=== PATIENT | female | born 1965 | race Caucasian/White ===

== ENCOUNTER → 2016-07-20 | Outpatient (CLI) | payer OTHER ==
[~2016-07-20] MED LIST: ASPI1TAB PO; CALC600T7 PO; FLAX10005 PO; LEVO100T5 PO; MELA1CAP2 PO; MULTCAP PO; PREM.6256 PO
[2016-07-20 21:12] LABS: FREE T4 1.52 NG/DL (0.76-1.46)
== END ==
LOC: M LRY 16:33
PROVIDERS: ATTEND Internal Medicine Endocrinology, Diabetes & Metabolism
DX: E89.0 Postprocedural hypothyroidism (principal)

== ENCOUNTER → 2016-09-18 | Outpatient (CLI) | payer OTHER ==
[2016-09-18 21:27] LABS: FREE T4 1.3 NG/DL (0.76-1.46)
== END ==
LOC: M LRY 17:04
PROVIDERS: ATTEND Internal Medicine Endocrinology, Diabetes & Metabolism
DX: E89.0 Postprocedural hypothyroidism (principal)

== ENCOUNTER → 2017-03-27 | Outpatient (CLI) | payer OTHER ==
[2017-03-27 17:11] LABS: FREE T4 1.13 NG/DL (0.76-1.46)
== END ==
LOC: M LAB 15:35
PROVIDERS: ATTEND Physician Assistant Medical
DX: E89.0 Postprocedural hypothyroidism (principal)

== ENCOUNTER → 2017-04-02 | Outpatient (CLI) | payer OTHER ==
[2017-04-02 10:15] LABS: ALBUMIN 3.5 GM/DL (3.2-5.2); ALBUMIN/GLOBULIN RATIO 1.03 (1.00-1.93); ALKALINE PHOSPHATASE 69 U/L (45-117); ALT/SGPT 21 U/L (12-78); ANION GAP 6 MEQ/L (8-16); AST/SGOT 12 U/L (15-37); BILIRUBIN,TOTAL 0.2 MG/DL (0.2-1.0); BLOOD UREA NITROGEN 10 MG/DL (7-18); CALCIUM LEVEL 8.4 MG/DL (8.5-10.1); CARBON DIOXIDE LEVEL 27 MEQ/L (21-32); CHLORIDE LEVEL 108 MEQ/L (98-107); CHOLESTEROL LEVEL 222 MG/DL (<200); CREATININE FOR GFR 0.86 MG/DL (0.55-1.02); GLOMERULAR FILTRATION RATE > 60.0 (>51); GLUCOSE, FASTING 85 MG/DL (70-105); POTASSIUM SERUM 4.5 MEQ/L (3.5-5.1); SODIUM LEVEL 141 MEQ/L (136-145); TOTAL PROTEIN 6.9 GM/DL (6.4-8.2); TRIGLYCERIDES LEVEL 116 MG/DL (<150)
== END ==
LOC: M LAB 09:22
PROVIDERS: ATTEND Family Medicine
DX: E78.2 Mixed hyperlipidemia (principal)

== ENCOUNTER → 2017-04-02 | Outpatient (CLI) | payer OTHER ==
--- NOTE | 2017-04-03 10:26 | DEXA ---
AP SPINE L1 - L4 1.147 -0.4 0.3 LT FEMUR TOTAL 0.952 -0.4 0.1 RT FEMUR TOTAL 0.964 -0.3 0.2 TOTAL BODY TOTAL OTHER DUAL FEMUR FRAX* ASSESSMENT Risk factors: 10 year probability of fracture Major osteoporotic fracture % Hip fracture % COMMENTS: Normal bone densitometry of the spine. Normal bone densitometry of the left hip. There is low bone density of the right hip. The density of the spine has decreased 3.7% since 12/27/2004. The density of the left hip has decreased 0.3% since 12/27/2004. The density of the right hip has decreased 2.3% since 12/27/2004. The decreased density of the spine does represent a significant change. The decreased density of the left hip does not represent a significant change. The decreased density of the right hip does represent a significant change. FOLLOW-UP: Recommendation for the next bone density exam: 2 years. VIKA
== END ==
LOC: M WHC 08:11
PROVIDERS: ATTEND Family Medicine
DX: Z86.39 Personal history of other endocrine, nutritional and metabolic disease (principal); Z13.820 Encounter for screening for osteoporosis

== ENCOUNTER → 2017-07-23 | Outpatient (CLI) | payer OTHER ==
[2017-07-23 19:29] LABS: FREE T4 1.29 NG/DL (0.76-1.46)
== END ==
LOC: M LAB 17:29
DX: E89.0 Postprocedural hypothyroidism (principal)
CPT/HCPCS: 84443

== ENCOUNTER → 2017-09-05 | Outpatient (CLI) | payer OTHER | LOC: M WHC 13:37 | DX: Z12.31 Encounter for screening mammogram for malignant neoplasm of breast (principal) | CPT/HCPCS: 77067 ==

== ENCOUNTER → 2017-09-05 | Outpatient (REF) | payer OTHER | LOC: M SFHCWAGY 14:06 | DX: Z12.4 Encounter for screening for malignant neoplasm of cervix (principal) ==

== ENCOUNTER → 2017-11-21 | Outpatient (REF) | payer OTHER ==
[2017-11-21 12:56] LABS: RHEUMATOID FACTOR QUANT < 10.0 IU/ML (<15.0)
[2017-11-21 12:56] LABS: URIC ACID 3.1 MG/DL (2.6-6.0)
== END ==
LOC: M SFHCADAM 07:57
DX: M67.40 Ganglion, unspecified site (principal)

== ENCOUNTER → 2018-01-17 | Outpatient (CLI) | payer OTHER ==
[2018-01-17 19:00] LABS: THYROID STIMULATING HORMONE 0.362 uIU/ML (0.358-3.740)
[2018-01-17 19:00] LABS: FREE T4 1.19 NG/DL (0.76-1.46)
== END ==
LOC: M LRY 14:41
DX: E89.0 Postprocedural hypothyroidism (principal)

== ENCOUNTER → 2018-09-06 | Outpatient (CLI) | payer OTHER ==
--- NOTE | 2018-09-06 15:19 | REPMRS ---
Patient History The patient states she had a clinical breast exam in 08/2018. Patient is postmenopausal. Family history of colorectal cancer at age 50 in father, colorectal cancer in paternal grandfather. Took hormonal contraceptives for 8 years. Taking unspecified hormones for 5 years. 3D TOMOSYNTHESIS WAS PERFORMED. Digital Woman Screen Mammo: September 06, 2018 - Exam #: [id number] Bilateral CC and MLO view(s) were taken. Technologist: Roxie Swan, Technologist Prior study comparison: September 05, 2017, digital woman screen mammo performed at [email or web address]. May 19, 2016, digital woman screen mammo performed at [email or web address] to [facility]. FINDINGS: There are scattered fibroglandular densities. There has been no change in the appearance of the mammogram from the prior studies. There is a mild amount of residual fibroglandular tissue which is fairly symmetric. There is no interval development of dominant mass, architectural distortion, or clustered microcalcification suggestive of malignancy. Assessment: BI-RADS/ACR category 1 mammogram. Negative Mammogram. Recommendation Routine screening mammogram in 1 year (for women over age 40). This mammogram was interpreted with the aid of an FDA-approved computer-aided dectection system. Electronically Signed By: Marvel Cummings MD 09/06/18 0800
== END ==
LOC: M WHC 14:02
PROVIDERS: ATTEND Physician Assistant
DX: Z12.31 Encounter for screening mammogram for malignant neoplasm of breast (principal)

== ENCOUNTER → 2019-01-14 | Outpatient (CLI) | payer OTHER ==
[~2019-01-14] MED LIST changes: -ASPI1TAB PO; +ASPI81TA26 PO
--- NOTE | 2019-01-14 17:02 | REP ---
Clinical: Postmenopausal bleeding. Technique: Transabdominal pelvic ultrasound followed by transvaginal examination for better evaluation of the endometrium and adnexa. Findings: Bladder is normal and measures 8.6 x 4.9 x 7.0 cm. Heterogeneous anteverted uterus measures 8.7 x 4.4 x 6.0 cm. Endometrial complex is thickened to 17.9 mm and includes 4.7 mm calcification as well as possible 1 cm heterogeneous partially calcified submucosal fibroid. Subcentimeter Nabothian cysts in the lower uterine segment are also identified as well as small amount of endocervical fluid. Bilateral ovaries are normal in appearance. Right ovary measures 2.1 x 1.3 x 1.7 cm. Left ovary measures 1.2 x 0.6 x 1.1 cm. No pelvic free fluid or mass lesion. Impression: Thickened endometrial complex with calcification and possible degenerating posterior submucosal fibroid.
== END ==
LOC: M WHC 14:01
PROVIDERS: ATTEND Nurse Practitioner Women's Health
DX: N95.0 Postmenopausal bleeding (principal); Z79.890 Hormone replacement therapy

== ENCOUNTER → 2019-01-29 | Outpatient (REF) | payer OTHER ==
[~2019-01-29] MED LIST changes: +AMLO5TAB6 PO; +MELA5TAB21 PO; +PREM0.452 PO
== END ==
LOC: M SFHCWAGY 14:14
PROVIDERS: ATTEND Nurse Practitioner Women's Health
DX: N95.0 Postmenopausal bleeding (principal)

== ENCOUNTER → 2019-02-19 | Outpatient (CLI) | payer OTHER ==
[2019-02-19 20:48] LABS: FREE T4 1.23 NG/DL (0.76-1.46); THYROID STIMULATING HORMONE 0.82 uIU/ML (0.358-3.740)
== END ==
LOC: M LRY 16:38
PROVIDERS: ATTEND Nurse Practitioner Family
DX: E89.0 Postprocedural hypothyroidism (principal)

== ENCOUNTER → 2019-03-21 | Outpatient (REF) | payer OTHER ==
[~2019-03-21] MED LIST changes: -AMLO5TAB6 PO; -MELA5TAB21 PO; -PREM0.452 PO
[2019-03-21 12:54] LABS: HEMATOCRIT 43.6 % (36.0-47.0); HEMOGLOBIN 14.1 g/dl (12.0-15.5); MEAN CORPUSCULAR HGB CONC 32.3 g/dl (32.0-36.5); MEAN CORPUSCULAR VOLUME 98.9 fl (80.0-96.0); PLATELET COUNT, AUTOMATED 235 10^3/uL (150-450); RED BLOOD COUNT 4.41 10^6/uL (4.00-5.40); WHITE BLOOD COUNT 5.8 10^3/uL (4.0-10.0)
[2019-03-21 13:03] LABS: TOTAL 25(OH) VITAMIN D 31.7 NG/ML (30.0-100.0)
[2019-03-21 13:08] LABS: ALBUMIN 3.6 GM/DL (3.2-5.2); ALT/SGPT 21 U/L (12-78); BILIRUBIN,TOTAL 0.5 MG/DL (0.2-1.0); BLOOD UREA NITROGEN 11 MG/DL (7-18); CALCIUM LEVEL 8.7 MG/DL (8.5-10.1); CARBON DIOXIDE LEVEL 30 MEQ/L (21-32); CHLORIDE LEVEL 106 MEQ/L (98-107); CHOLESTEROL LEVEL 194 MG/DL (<200); CHOLESTEROL RISK RATIO 3.129 (<5); CREATININE FOR GFR 0.86 MG/DL (0.55-1.30); FREE T4 1.21 NG/DL (0.76-1.46); GLOMERULAR FILTRATION RATE > 60.0 (>51); GLUCOSE, FASTING 82 MG/DL (70-100); HDL CHOLESTEROL 62 MG/DL (>40); LDL CHOLESTEROL 110 MG/DL (<100); NON-HDL-C 132 MG/DL; POTASSIUM SERUM 4.5 MEQ/L (3.5-5.1); SODIUM LEVEL 140 MEQ/L (136-145); TOTAL PROTEIN 6.8 GM/DL (6.4-8.2); TRIGLYCERIDES LEVEL 108 MG/DL (<150)
[2019-03-21 13:29] LABS: CREATININE, URINE 94.5 MG/DL; MALB URINE SIEMENS < 5.0 MG/L; MAU/CREAT RATIO 5.2 MCG/MG (0.0-30.0)
== END ==
LOC: M SFHCADAM 08:21
PROVIDERS: ATTEND Family Medicine
DX: I10 Essential (primary) hypertension (principal); E89.0 Postprocedural hypothyroidism; E78.2 Mixed hyperlipidemia; E55.9 Vitamin D deficiency, unspecified

== ENCOUNTER 2019-06-26 06:01 | Day surgery (SDC) | payer OTHER ==
[~2019-06-26] VITALS: Ht 162.6 cm; Wt 71.2 kg
[2019-06-26] VITALS (7 sets, daily range): BP systolic 109–126; BP diastolic 65–72
[~2019-06-26 06:01] MED LIST changes: +AMLO5TAB6 PO; +LIDOCAINE 1% MDV 20ML VIAL SQ PRN; +MELA5TAB21 PO; +PREM0.452 PO
[2019-06-26] MEDS ORDERED: propofoL 500 MG/50 ML VIAL As Ordered ONE (06:49)
[2019-06-26] MEDS ORDERED: MIDAZOLAM INJ 2 MG/2 ML VIAL (J2250) As Ordered ONE (06:50)
[2019-06-26] MEDS ORDERED: fentaNYL 250 MCG/5 ML INJECTION (J3010) As Ordered ONE (06:50)
[2019-06-26] MEDS ORDERED: propofoL 200 MG/20 ML VIAL As Ordered ONE (06:50)
[2019-06-26] MEDS ORDERED: SUGAMMADEX SODIUM 500 MG/5 ML VIAL (BRIDION) As Ordered ONE (06:50)
[2019-06-26] MEDS ORDERED: LIDOCAINE 2% INJ 100 MG/5 ML SDV (FOR ANES.) As Ordered ONE ×2 (06:50→10:29)
[2019-06-26] MEDS ORDERED: ROCURONIUM BROMIDE 50 MG/5 ML VIAL As Ordered ONE (06:50)
[2019-06-26 06:51] LABS: HEMATOCRIT 42.8 % (36.0-47.0); HEMOGLOBIN 13.9 g/dl (12.0-15.5); MEAN CORPUSCULAR HEMOGLOBIN 31.3 pg (27.0-33.0); MEAN CORPUSCULAR HGB CONC 32.5 g/dl (32.0-36.5); MEAN CORPUSCULAR VOLUME 96.4 fl (80.0-96.0); PLATELET COUNT, AUTOMATED 259 10^3/uL (150-450); RED BLOOD COUNT 4.44 10^6/uL (4.00-5.40)
[2019-06-26] MEDS ORDERED: KETAMINE HCL 200 MG/20 ML VIAL As Ordered ONE (06:51)
[2019-06-26] MEDS ORDERED: ONDANSETRON 4MG/2ML VIAL (J2405) As Ordered ONE (06:59)
[2019-06-26] MEDS ORDERED: PHENAZOPYRIDINE 100 MG TAB PO ONE (07:00)
[2019-06-26] MEDS ORDERED: ceFAZolin SOD 2 GM in IV 1 EA IV ONE (07:00)
[2019-06-26] MEDS ORDERED: LR 1,000 ML IV ONE (07:00)
[2019-06-26] MEDS ORDERED: dexameTHASONE 4 MG/ML 1ML VIAL (J1100) As Ordered ONE (07:00)
[2019-06-26] MEDS ORDERED: ACETAMINOPHEN 1000MG 100ML IV BTL (OFIRMEV) (J0131 PER 10MG) As Ordered ONE (08:31)
[2019-06-26] MEDS ORDERED: KETOROLAC 60 MG/2 ML VIAL (J1885) As Ordered ONE (08:31)
[2019-06-26] MEDS ORDERED: MORPHINE 1MG/ML IN 0.9% NACL 100ML IV BAG As Ordered ONE (11:13)
[2019-06-26] MEDS ORDERED: METOCLOPRAMIDE INJ 10MG/2ML VIAL (J2765) IV PRN (11:15)
[2019-06-26] MEDS ORDERED: NALBUPHINE HCL 10 MG/ML AMP (J2300) IV PRN (11:15)
[2019-06-26] MEDS ORDERED: LR 1,000 ML IV SCH (11:15)
[2019-06-26] MEDS ORDERED: fentaNYL 100 MCG/2 ML INJECTION (J3010) IV PRN (11:15)
[2019-06-26] MEDS ORDERED: EPIDURAL/PCA KEYS XX PRN (11:15)
[2019-06-26] MEDS ORDERED: diphenhydrAMINE INJ 50MG/ML VIAL (J1200) IV PRN (11:15)
[2019-06-26] MEDS ORDERED: PERCOCET 5MG/325MG TAB PO PRN (11:15)
[2019-06-26] MEDS ORDERED: MORPHINE 1MG/ML IN 0.9% NACL 100ML IV BAG IV PRN (11:15)
[2019-06-26] MEDS ORDERED: NALOXONE INJ 0.4 MG/1 ML VIAL (J2310) IV PRN (11:15)
[2019-06-26] MEDS ORDERED: ONDANSETRON 4MG/2ML VIAL (J2405) IV PRN (11:15)
[2019-06-26] MEDS: LR 1,000 ML IV SCH ×2 (11:30→18:54)
[2019-06-26] MEDS ORDERED: IBUPROFEN 600 MG TAB PO PRN (11:30)
--- NOTE | 2019-06-26 12:58 | RO ---
DATE OF SURGERY: 06/26/2019 PREOPERATIVE DIAGNOSIS AND INDICATION FOR SURGERY: Symptomatic prolapse. POSTOPERATIVE DIAGNOSES: Symptomatic prolapse. The patient was also noted with her uterine anterior and posterior prolapse to have a left paravaginal defect, as well. PROCEDURE: Laparoscopic-assisted vaginal hysterectomy with bilateral salpingo-oophorectomy, sacrospinous suspension, anterior and posterior repair with left paravaginal repair, as well, and cystourethroscopy. SURGEON: Arelis Villareal MD VICTIM WITNESS ADMINISTRATOR: None. ANESTHESIA: General endotracheal anesthesia. BRIEF DESCRIPTION OF PROCEDURE AND FINDINGS: Ann was brought to the operating room where sufficient general endotracheal anesthesia was induced. She was prepped, draped, and positioned in the usual sterile fashion with a Contreras placed in the bladder with the ability to backfill and the uterine manipulator placed after the uterus had been sounded to 9. Then, went ahead and turned our attention to the abdominal portion of the procedure. A transverse semilunar incision was made at the base of the umbilicus. Sharp and blunt dissection were continued to the subcutaneous tissues to the level of the rectus fascia, which was transversely incised, secured with 0 Vicryl retention sutures, and then the peritoneum was entered bluntly under direct visualization in an open laparoscopic technique. The Nicola cannula was then placed and secured in place with the 0 Vicryl retention sutures, and CO2 insufflation was then begun. After adequate CO2 insufflation, the peritoneal cavity was visualized. There were normal shiny peritoneal surfaces throughout. There was no excrescence, ascites, nor exudate. There were some minor adhesions. Some of those of the descending colon on the left side needed to be broken down so that the intestines could be moved out of the way of the procedure but otherwise is fairly reassuring pelvis. Using the uterine manipulator and Trendelenburg and, of course, after taking down some of those descending colon adhesions. We were able to isolate the infundibulopelvic ligaments; and starting on the left side, we carefully cauterized and transected this using the #45 Enseal bipolar dissector, working through the operative channel on the scope. We were able to free the left adnexa, both ovary and tube, and transect the round ligament, and work through the broad ligament back towards the uterus, avoiding injury to bowel and ureters and, of course, the bladder. We then turned our attention to the right side with a similar dissection, working carefully and with no evidence of significant bleeding. Having freed the adnexa of the round ligament, the superior aspect of the broad, we then used the cold scissors to transect the peritoneum over the lower uterine segment, creating the bladder flap, and then turned our attention to the vaginal portion of the case with the instruments removed above but the trocar left in place should we need it. Working vaginally with the uterine manipulator removed, we had a single-tooth tenaculum on the anterior and posterior aspect of the cervix and weighted retractor and a curved Manohar retractor in place, and then a circumferential incision was made around the base of the cervix, and sharp and blunt dissection used to isolate the cardinal ligaments, which were then clamped with the Bajwa clamps used throughout this portion of the case, transected, and then ligated using 0 Vicryl suture. The peritoneum was then entered posteriorly and anteriorly and the uterine vasculature carefully isolated, clamped, transected, and ligated along the lateral aspects of the uterus until it could join up with our previous dissection and the uterus with the attached ovaries and tubes was delivered. We carefully evaluated our pedicles. Good hemostasis was confirmed. Angle stitches of 0 Vicryl were placed, and we then turned our attention to closure of the peritoneum and of a small enterocele, superior cystocele anteriorly. So, we dissected the paravaginal paravesical tissues away from the bladder, and we closed the peritoneum, and then we did a pursestring closure anteriorly, and then dissected posteriorly through the rectovaginal, dissecting away the rectovaginal tissues so that we could then having done some of the superior repair, then dissect down to the right sacrospinous ligament. We then used Anchorsure anchors, two of them each, with two #2-0 Maxon suture in them to place a total of four sutures in the sacrospinous ligament to secure for the sacrospinous suspension. As already noted, we had already closed the peritoneum and done a superior anterior repair with 2-0 Vicryl. Then, we used these Maxon sutures for through and through placement using a Pastor needle after they had been anchored in place, bringing two out on the anterior, each lateral aspect, and two out posteriorly, again using Allis clamps to sort of set the placement to know that we would have the right tension. Then, with those sutures in place, we went ahead, we already had angle stitches at the cuff, and we went ahead and closed the cuff and then brought down those angle stitches, each of them, bringing the tissues carefully up to the sacrospinous ligament so that we did not have a bridge of any tissue. We then went ahead and scoped the patient. She had taken Pyridium preoperatively, and we were able to see jets of urine from both ureters. We then tightened the last of the throws on those sutures so they would be more secure, trimmed them off, and then turned our attention to the rest of the repair. After this closure and the superior cystocele repair, she had reasonable cystocele correction, but she had a left paravaginal defect that had not been as obvious when the midline defect was so prominent. So, we went ahead and made just to the left of midline an incision so that we could get out laterally on the left and brought that with 2-0 sutures to correct that paravaginal defect. So, we essentially made a vertical incision in the vagina, dissected out laterally, placed paravesical sutures to secure these tissues. Then having closed that defect, went ahead and closed the vaginal tissue, as well; and with the cystocele repaired and the paravaginal defect repaired and the apical support in place, we still had a posterior defect and a little bit of laxity at the introitus. So, we went ahead and removed an inverted triangle of tissue at the perineum, dissected in the midline posteriorly, so we could plicate the pararectal tissues and the levators and, of course, correct perineal repair; and we were careful to also connect the rectovaginal septum to the perineum in our closure; and then any redundant tissue, of course, was removed, and the vaginal skin closed, as well. Good approximation and hemostasis was achieved, and good support was achieved with each of these steps; and with the repair completed, we went ahead and closed the umbilical wound, as well, using the retention sutures to close the fascial layer and then using 3-0 Vicryl on the skin in a subcuticular stitch. A dry sterile dressing was then applied. Estimated blood loss for the procedure was only about 70 mL. Fluid replacement was crystalloid. COMPLICATIONS: None. CONDITION AND DISPOSITION: Ann tolerated the procedure well and was recovering in the recovery room in good condition.
[2019-06-27 02:12] VITALS: BP 104/57
[2019-06-27] MEDS: LR 1,000 ML IV SCH (03:33)
[2019-06-27] MEDS ORDERED: NORCO, ANEXSIA 5/325MG TABLET (HYDROcodone/ACETAMINOPHEN) PO PRN (06:00)
[2019-06-27] MEDS ORDERED: LEVOTHYROXINE 100MCG TABLET (0.1MG) PO SCH (06:00)
[2019-06-27 06:03] VITALS: BP 104/58
[2019-06-27 06:57] LABS: HEMATOCRIT 33.5 % (36.0-47.0); MEAN CORPUSCULAR HEMOGLOBIN 31.8 pg (27.0-33.0); MEAN CORPUSCULAR HGB CONC 32.8 g/dl (32.0-36.5); MEAN CORPUSCULAR VOLUME 96.8 fl (80.0-96.0); PLATELET COUNT, AUTOMATED 198 10^3/uL (150-450); RED BLOOD COUNT 3.46 10^6/uL (4.00-5.40)
[2019-06-27] MEDS ORDERED: amLODIPine 5 MG TAB PO SCH (09:00)
== END 2019-06-27 09:50 | disposition home or self-care (01) ==
LOC: M SDC 06:01 → M MS5PR 12:55 → M SDC 06-27 09:50
PROVIDERS: ATTEND Obstetrics & Gynecology
DX: N81.89 Other female genital prolapse (principal); D25.0 Submucous leiomyoma of uterus; D25.1 Intramural leiomyoma of uterus; N72 Inflammatory disease of cervix uteri; E55.9 Vitamin D deficiency, unspecified; E89.0 Postprocedural hypothyroidism; I10 Essential (primary) hypertension; E78.2 Mixed hyperlipidemia; Z79.899 Other long term (current) drug therapy; Z79.82 Long term (current) use of aspirin; Z79.890 Hormone replacement therapy
CPT/HCPCS: 36415; 57250; 57285; 58552; 85027; 86850; 86900; 86901; 88305; C1713; J0131; J0690; J1100; J1885; J2250; J2405; J3010

== ENCOUNTER → 2019-12-16 | Outpatient (CLI) | payer OTHER ==
[~2019-12-16] MED LIST changes: -LIDOCAINE 1% MDV 20ML VIAL SQ PRN
--- NOTE | 2019-12-16 15:50 | REPMRS ---
Patient History The patient states she had a clinical breast exam in November 2019. Family history of colorectal cancer at age 50 in father, colorectal cancer in paternal grandfather. Took hormonal contraceptives for 8 years. Taking unspecified hormones for 5 years. Digital Woman Screen Mammo: December 16, 2019 - Exam #: [id number] Bilateral CC and MLO view(s) were taken. Technologist: Melissa Mccann, Technologist Prior study comparison: September 06, 2018, bilateral digital woman screen mammo performed at [facility]. September 05, 2017, digital woman screen mammo performed at [facility]. May 19, 2016, digital woman screen mammo performed at [facility]. FINDINGS: There are scattered fibroglandular densities. The Volpara volumetric breast density category is:B. There has been no change in the appearance of the mammogram from the prior studies. There is a mild amount of scattered fibroglandular density which is fairly symmetric. There is no interval development of dominant mass, architectural distortion, or grouped microcalcification suggestive of malignancy. 3-D tomosynthesis shows no additional findings. Assessment: BI-RADS/ACR category 1 mammogram. Negative Mammogram. Recommendation Routine screening mammogram of both breasts in 1 year (for women over age 40). This patient's Lifetime Breast Cancer Risk is estimated at 9.3 %. This mammogram was interpreted with the aid of an FDA-approved computer-aided dectection system. Electronically Signed By: Ti Poon MD 12/16/19 [id number]
== END ==
LOC: M WHC 14:49
PROVIDERS: ATTEND Nurse Practitioner Women's Health
DX: Z12.31 Encounter for screening mammogram for malignant neoplasm of breast (principal); Z80.0 Family history of malignant neoplasm of digestive organs

== ENCOUNTER → 2020-02-25 | Outpatient (CLI) | payer OTHER ==
[~2020-02-25] MED LIST changes: +AMLO1TAB24 PO; -AMLO5TAB6 PO; +CALC-212 PO; -CALC600T7 PO
== END ==
LOC: M PLALAB 14:35
PROVIDERS: ATTEND Nurse Practitioner Family
DX: E89.0 Postprocedural hypothyroidism (principal)

== ENCOUNTER → 2020-06-02 | Outpatient (REF) | payer OTHER | LOC: M LAB REF 09:47 | PROVIDERS: ATTEND Physician Assistant Medical | DX: Z11.59 Encounter for screening for other viral diseases (principal) ==

== ENCOUNTER → 2020-06-14 | Outpatient (CLI) | payer OTHER ==
[2020-06-14 13:58] LABS: THYROID STIMULATING HORMONE 0.21 uIU/ML (0.358-3.740)
[2020-06-17 09:25] LABS: FREE T4 1.54 NG/DL (0.76-1.46)
== END ==
LOC: M PLALAB 10:02
PROVIDERS: ATTEND Nurse Practitioner Family
DX: E89.0 Postprocedural hypothyroidism (principal)

== ENCOUNTER → 2020-10-18 | Outpatient (REF) | payer OTHER ==
[2020-10-18 15:00] LABS: FREE T4 1.24 NG/DL (0.76-1.46); THYROID STIMULATING HORMONE 2.11 uIU/ML (0.358-3.740)
== END ==
LOC: M PLALAB 13:02
PROVIDERS: ATTEND Nurse Practitioner Family
DX: E89.0 Postprocedural hypothyroidism (principal)

== ENCOUNTER → 2021-03-31 | Outpatient (CLI) | payer OTHER ==
--- NOTE | 2021-03-31 16:09 | REP ---
INDICATION: ARMAND SCR MAMMO. COMPARISON: 12/16/2019 as well as other prior exams. TECHNIQUE: MLO and CC views bilateral breasts. FINDINGS: Moderate fibroglandular tissue is present. A new smoothly marginated 6 mm nodule is seen in the anterior upper outer quadrant of the left breast. There is no other evidence of new mass or clustered microcalcifications. The Volpara volumetric breast density pattern is B. IMPRESSION: BIRADS/ACR category 0, incomplete. New smoothly marginated 6 mm nodule left upper outer quadrant. Recommend spot compression views and ultrasound to further evaluate. [facility] 8.9%. This mammogram was interpreted with the aid of an FDA-approved computer-aided detection system. The patient states she had a clinical breast exam in 03/31/2021. The patient letter being requested is M0. RECOMMENDATION: Recommend spot compression views and ultrasound left breast. <Electronically signed by Marvel Cummings > 03/31/21 [id number]
== END ==
LOC: M WHC 14:26
PROVIDERS: ATTEND Nurse Practitioner Women's Health
DX: Z12.31 Encounter for screening mammogram for malignant neoplasm of breast (principal); R92.2 Inconclusive mammogram

== ENCOUNTER → 2021-04-06 | Outpatient (CLI) | payer OTHER ==
[2021-04-06 14:11] LABS: FREE T4 1.37 NG/DL (0.76-1.46); THYROID STIMULATING HORMONE 2.82 uIU/ML (0.358-3.740)
== END ==
LOC: M PLALAB 11:10
PROVIDERS: ATTEND Nurse Practitioner Family
DX: E89.0 Postprocedural hypothyroidism (principal)

== ENCOUNTER → 2021-04-13 | Outpatient (CLI) | payer OTHER ==
--- NOTE | 2021-04-13 11:45 | REP ---
INDICATION: L BREAST ADD VIEWS. Focal asymmetry, left breast. COMPARISON: Screening mammogram, 12/16/2019 and 03/31/2021. TECHNIQUE: 3D focal spot-compression images were obtained of the left breast in the CC and MLO orientations. Targeted ultrasound evaluation of the left breast was performed. FINDINGS: The focal asymmetry seen in the retroareolar area of the left breast, on the recent screening mammogram, is not clearly demonstrated on the additional view mammogram. The Volpara volumetric breast density pattern is B, there are scattered areas of fibroglandular density.. Left breast ultrasound: 12 o'clock, 2 cm from the nipple, 7 x 5 x 4 mm, simple cyst. IMPRESSION: BIRADS/ACR : Category 2: Benign finding. This mammogram was interpreted with the aid of an FDA-approved computer-aided detection system. The patient letter being requested is M1. RECOMMENDATION: Repeat screening mammography recommended 1 year (for women over 40). <Electronically signed by Vamsi Zavala > 04/13/21 [id number]
--- NOTE | 2021-04-13 12:07 | REP ---
INDICATION: L BREAST ADD VIEWS. Focal asymmetry, left breast. COMPARISON: Screening mammogram, 12/16/2019 and 03/31/2021. TECHNIQUE: 3D focal spot-compression images were obtained of the left breast in the CC and MLO orientations. Targeted ultrasound evaluation of the left breast was performed. FINDINGS: The focal asymmetry seen in the retroareolar area of the left breast, on the recent screening mammogram, is not well demonstrated on the additional view mammogram. The Volpara volumetric breast density pattern is B, there are scattered areas of fibroglandular density.. Left breast ultrasound: 12 o'clock, 2 cm from the nipple, 7 x 5 x 4 mm, simple cyst. IMPRESSION: BIRADS/ACR : Category 2: Benign finding. This mammogram was interpreted with the aid of an FDA-approved computer-aided detection system. The patient letter being requested is M1. RECOMMENDATION: Follow up screening mammogram in 1 year. <Electronically signed by Vamsi Zavala > 04/13/21 [id number]
== END ==
LOC: M WHC 10:04
PROVIDERS: ATTEND Nurse Practitioner Women's Health
DX: N60.02 Solitary cyst of left breast (principal)

== ENCOUNTER → 2021-11-10 | Outpatient (CLI) | payer OTHER ==
[~2021-11-10] MED LIST changes: +CALCCAP4 PO; +VITMTA PO
== END ==
LOC: M LABSMTC 10:01
PROVIDERS: ATTEND Anesthesiology
DX: Z01.818 Encounter for other preprocedural examination (principal); Z11.52 Encounter for screening for COVID-19

== ENCOUNTER 2021-11-15 10:58 | Day surgery (SDC) | payer OTHER ==
[~2021-11-15] VITALS: Ht 162.6 cm; Wt 72.5 kg
[~2021-11-15 10:58] MED LIST changes: +NS 1,000 ML IV ONE
[2021-11-15 14:19] VITALS: BP 127/62
== END 2021-11-15 14:19 | disposition home or self-care (01) ==
LOC: M OPP 10:58
PROVIDERS: ATTEND Surgery
DX: Z12.11 Encounter for screening for malignant neoplasm of colon (principal); Z86.010 Personal history of colon polyps; Z80.0 Family history of malignant neoplasm of digestive organs; K57.30 Diverticulosis of large intestine without perforation or abscess without bleeding; K64.8 Other hemorrhoids; Z86.39 Personal history of other endocrine, nutritional and metabolic disease; E03.9 Hypothyroidism, unspecified; Z92.3 Personal history of irradiation; Z79.818 Long term (current) use of other agents affecting estrogen receptors and estrogen levels; Z79.899 Other long term (current) drug therapy

== ENCOUNTER → 2022-04-03 | Outpatient (CLI) | payer OTHER ==
[~2022-04-03] MED LIST changes: -NS 1,000 ML IV ONE
[2022-04-03 16:23] LABS: FREE T4 1.12 NG/DL (0.76-1.46); THYROID STIMULATING HORMONE 2.03 uIU/ML (0.358-3.740)
== END ==
LOC: M PLALAB 13:29
PROVIDERS: ATTEND Nurse Practitioner Family
DX: E89.0 Postprocedural hypothyroidism (principal)

== ENCOUNTER → 2022-04-26 | Outpatient (CLI) | payer OTHER | LOC: M WHC 16:30 | PROVIDERS: ATTEND Family Medicine | DX: Z12.31 Encounter for screening mammogram for malignant neoplasm of breast (principal); N60.02 Solitary cyst of left breast ==

== ENCOUNTER → 2022-10-18 | Outpatient (REF) | payer OTHER ==
[2022-10-18 16:18] LABS: HEMATOCRIT 43.9 % (36.0-47.0); MEAN CORPUSCULAR HGB CONC 31.9 g/dl (32.0-36.5); MEAN CORPUSCULAR VOLUME 97.1 fl (80.0-96.0); PLATELET COUNT, AUTOMATED 255 10^3/uL (150-450); RED BLOOD COUNT 4.52 10^6/uL (4.00-5.40); WHITE BLOOD COUNT 7.8 10^3/uL (4.0-10.0)
[2022-10-18 16:51] LABS: FREE T4 1.18 NG/DL (0.89-1.76)
[2022-10-18 16:52] LABS: ALBUMIN 3.8 G/DL (3.2-5.2); ALKALINE PHOSPHATASE 77 U/L (46-116); ALT/SGPT 31 U/L (7.0-40); AST/SGOT 8 U/L (<34); BILIRUBIN,TOTAL 0.5 MG/DL (0.3-1.2); BLOOD UREA NITROGEN 12 MG/DL (9-23); CALCIUM LEVEL 9.7 MG/DL (8.5-10.1); CARBON DIOXIDE LEVEL 29 MMOL/L (20-31); CHLORIDE LEVEL 103 MMOL/L (98-107); CHOLESTEROL LEVEL 219 MG/DL (<200); CHOLESTEROL RISK RATIO 3.13 (<5); CREATININE FOR GFR 0.88 MG/DL (0.55-1.30); GLOMERULAR FILTRATION RATE > 60.0 (>51); GLUCOSE, FASTING 84 MG/DL (60-100); HDL CHOLESTEROL 69.9 MG/DL (>40); LDL CHOLESTEROL 130.9 MG/DL (<100); NON-HDL-C 149.1 MG/DL; POTASSIUM SERUM 4.7 MMOL/L (3.5-5.1); SODIUM LEVEL 138 MMOL/L (136-145); TOTAL 25(OH) VITAMIN D 47.8 NG/ML (20.0-100.0); TOTAL PROTEIN 6.9 G/DL (5.7-8.2); TRIGLYCERIDES LEVEL 91 MG/DL (<150)
[2022-10-18 16:56] LABS: THYROID STIMULATING HORMONE 3.282 uIU/ML (0.55-4.78)
== END ==
LOC: M SFHCADAM 13:46
PROVIDERS: ATTEND Family Medicine
DX: I10 Essential (primary) hypertension (principal); E89.0 Postprocedural hypothyroidism; E78.2 Mixed hyperlipidemia; E55.9 Vitamin D deficiency, unspecified; Z86.39 Personal history of other endocrine, nutritional and metabolic disease

== ENCOUNTER → 2023-01-22 | Outpatient (CLI) | payer OTHER | LOC: M WHC 10:38 | PROVIDERS: ATTEND Family Medicine | DX: M85.851 Other specified disorders of bone density and structure, right thigh (principal); M85.852 Other specified disorders of bone density and structure, left thigh; Z78.0 Asymptomatic menopausal state ==

== ENCOUNTER → 2023-11-01 | Outpatient (REF) | payer OTHER ==
[2023-11-01 17:44] LABS: HEMATOCRIT 45.3 % (36.0-47.0); HEMOGLOBIN 14.5 g/dl (12.0-15.5); MEAN CORPUSCULAR HEMOGLOBIN 31.2 pg (27.0-33.0); MEAN CORPUSCULAR VOLUME 97.4 fl (80.0-96.0); PLATELET COUNT, AUTOMATED 261 10^3/uL (150-450); RED BLOOD COUNT 4.65 10^6/uL (4.00-5.40); WHITE BLOOD COUNT 6.7 10^3/uL (4.0-10.0)
[2023-11-01 18:02] LABS: ALBUMIN 3.7 G/DL (3.2-5.2); ALKALINE PHOSPHATASE 93 U/L (46-116); ALT/SGPT 22 U/L (7.0-40); AST/SGOT 21 U/L (<34); BILIRUBIN,TOTAL 0.6 MG/DL (0.3-1.2); BLOOD UREA NITROGEN 12 MG/DL (9-23); CALCIUM LEVEL 9.3 MG/DL (8.5-10.1); CARBON DIOXIDE LEVEL 28 MMOL/L (20-31); CHLORIDE LEVEL 105 MMOL/L (98-107); CHOLESTEROL LEVEL 269 MG/DL (<200); CREATININE FOR GFR 0.82 MG/DL (0.55-1.30); GLOMERULAR FILTRATION RATE > 60.0 (>51); GLUCOSE, FASTING 89 MG/DL (60-100); HDL CHOLESTEROL 68.8 MG/DL (>40); NON-HDL-C 200.2 MG/DL; POTASSIUM SERUM 4.9 MMOL/L (3.5-5.1); SODIUM LEVEL 138 MMOL/L (136-145); THYROID STIMULATING HORMONE 2.284 uIU/ML (0.55-4.78); TOTAL PROTEIN 7.1 G/DL (5.7-8.2); TRIGLYCERIDES LEVEL 111 MG/DL (<150)
[2023-11-01 18:03] LABS: FREE T4 1.28 NG/DL (0.89-1.76)
[2023-11-01 18:23] LABS: HEMOGLOBIN A1c 5.1 % (4.0-6.0)
== END ==
LOC: M SFHCADAM 11:47
PROVIDERS: ATTEND Family Medicine
DX: Z86.39 Personal history of other endocrine, nutritional and metabolic disease (principal); E89.0 Postprocedural hypothyroidism; E78.2 Mixed hyperlipidemia; R55 Syncope and collapse; Z13.1 Encounter for screening for diabetes mellitus

== ENCOUNTER → 2023-11-06 | Outpatient (CLI) | payer OTHER | LOC: M WHC 08:57 | PROVIDERS: ATTEND Family Medicine | DX: Z12.31 Encounter for screening mammogram for malignant neoplasm of breast (principal) ==

== ENCOUNTER → 2024-02-06 | Outpatient (CLI) | payer OTHER ==
[2024-02-06 12:58] LABS: CHOLESTEROL RISK RATIO 4.08 (<5); HDL CHOLESTEROL 52.9 MG/DL (>40); LDL CHOLESTEROL 136.7 MG/DL (<100); NON-HDL-C 163.1 MG/DL
== END ==
LOC: M PLALAB 09:28
PROVIDERS: ATTEND Family Medicine
DX: E78.2 Mixed hyperlipidemia (principal)

== ENCOUNTER → 2024-03-17 | Outpatient (CLI) | payer OTHER ==
[2024-03-17 19:52] LABS: FREE T4 1.42 NG/DL (0.89-1.76)
[2024-03-17 19:53] LABS: THYROID STIMULATING HORMONE 1.05 uIU/ML (0.55-4.78)
== END ==
LOC: M PLALAB 15:35
PROVIDERS: ATTEND Nurse Practitioner Family
DX: E89.0 Postprocedural hypothyroidism (principal)

== ENCOUNTER → 2025-04-02 | Outpatient (CLI) | payer OTHER ==
[~2025-04-02] MED LIST changes: -FLAX10005 PO; +FLAX1CAP6 PO
[2025-04-02 15:30] LABS: FREE T4 1.33 NG/DL (0.89-1.76)
== END ==
LOC: M PLALAB 12:04
PROVIDERS: ATTEND Nurse Practitioner Family
DX: E89.0 Postprocedural hypothyroidism (principal)

== ENCOUNTER → 2025-05-05 | Outpatient (CLI) | payer OTHER | LOC: M WHC 12:52 | PROVIDERS: ATTEND Family Medicine | DX: Z12.31 Encounter for screening mammogram for malignant neoplasm of breast (principal) ==

== ENCOUNTER → 2025-05-29 | Outpatient (CLI) | payer OTHER ==
[2025-05-29 14:38] LABS: PLATELET COUNT, AUTOMATED 249 10^3/uL (150-450)
[2025-05-29 14:46] LABS: ESTIMATED AVERAGE GLUCOSE 103.0 MG/DL (60-110)
[2025-05-29 15:01] LABS: ALT/SGPT 16.0 U/L (7.0-40); AST/SGOT 16.0 U/L (<34); CALCIUM LEVEL 9.3 MG/DL (8.3-10.6); CARBON DIOXIDE LEVEL 28.0 MMOL/L (20-31); CHLORIDE LEVEL 103.0 MMOL/L (98-107); CHOLESTEROL LEVEL 244.0 MG/DL (<200); CHOLESTEROL RISK RATIO 3.73 (<5); CREATININE FOR GFR 0.84 MG/DL (0.55-1.30); GLOMERULAR FILTRATION RATE 79.0 (>45); LDL CHOLESTEROL 164.4 MG/DL (<100); NON-HDL-C 178.6 MG/DL; POTASSIUM SERUM 4.6 MMOL/L (3.5-5.1); SODIUM LEVEL 140.0 MMOL/L (136-145); TOTAL 25(OH) VITAMIN D 46.4 NG/ML (20.0-100.0); TRIGLYCERIDES LEVEL 71.0 MG/DL (<150)
[2025-05-29 15:02] LABS: FREE T4 1.6 NG/DL (0.89-1.76)
== END ==
LOC: M PLALAB 10:36
PROVIDERS: ATTEND Family Medicine
DX: R55 Syncope and collapse (principal); E78.2 Mixed hyperlipidemia; Z13.1 Encounter for screening for diabetes mellitus; E55.9 Vitamin D deficiency, unspecified; Z86.39 Personal history of other endocrine, nutritional and metabolic disease; E89.0 Postprocedural hypothyroidism